=== PATIENT | female | born 1945 | race Two or more races ===

== ENCOUNTER 2017-10-28 11:47 | Emergency (ER) | payer OTHER ==
[~2017-10-28] VITALS: Ht 152.4 cm; Wt 51.3 kg
--- NOTE | 2017-10-28 12:08 | NUR ---
PT IS IN ROOM #2B. DR ISAACS EVALUATED THE PT.
[2017-10-28] MEDS ORDERED: ATOR10TA PO (12:11)
[2017-10-28] MEDS ORDERED: ALEN70TA45 PO (12:11)
[2017-10-28] MEDS ORDERED: FERR325T28 PO (12:11)
[2017-10-28] MEDS ORDERED: OMEG-176 PO (12:11)
[2017-10-28] MEDS ORDERED: OMEP40CA37 PO (12:11)
[2017-10-28] MEDS ORDERED: TDAP DIPH,PERTUSS,TET VAC/PF 0.5 ML DISP.SYRIN IM ONE ×2 (12:11→12:15)
[2017-10-28] MEDS ORDERED: MELO-107 PO (12:11)
[2017-10-28] MEDS ORDERED: CHOL200074 PO (12:11)
[2017-10-28] MEDS ORDERED: AMLO5TAB2 PO (12:11)
[2017-10-28] MEDS ORDERED: GING550C5 PO (12:11)
[2017-10-28] MEDS ORDERED: CALC500T51 PO (12:11)
[2017-10-28] MEDS ORDERED: HYDR200T4 PO (12:11)
[2017-10-28] MEDS ORDERED: LIDOCAINE HCL 1% 20 ML VIAL ONE (12:11)
[2017-10-28] MEDS ORDERED: TURM1CAP PO (12:11)
[2017-10-28] MEDS ORDERED: LEVO112T5 PO (12:11)
[2017-10-28] MEDS ORDERED: NEOMY/BACITRA/POLYMYXIN B OINT UD PACKET TP ONE (12:15)
[2017-10-28] MEDS ORDERED: LIDOCAINE HCL 1% 20 ML VIAL TP ONE (12:15)
[2017-10-28 13:49] VITALS: BP 139/77
--- NOTE | 2017-10-28 13:49 | NUR ---
pt was d/c to home. d/c instructions given to the pt.
== END 2017-10-28 13:50 | disposition home or self-care (01) ==
LOC: ER 11:47
DX: S01.81XA Laceration without foreign body of other part of head, initial encounter (principal); S02.80XA Fracture of other specified skull and facial bones, unspecified side, initial encounter for closed fracture; S00.81XA Abrasion of other part of head, initial encounter; S00.83XA Contusion of other part of head, initial encounter; S09.90XA Unspecified injury of head, initial encounter; E78.5 Hyperlipidemia, unspecified; K21.9 Gastro-esophageal reflux disease without esophagitis; E03.9 Hypothyroidism, unspecified; Z79.899 Other long term (current) drug therapy; W18.40XA Slipping, tripping and stumbling without falling, unspecified, initial encounter; Y93.89 Activity, other specified; Y92.89 Other specified places as the place of occurrence of the external cause; Y99.8 Other external cause status
CPT/HCPCS: 70450; 70486; 90715; A4217; A4663; J3490